=== PATIENT | female | born 1960 | race Caucasian/White ===

== ENCOUNTER → 2024-09-07 12:33 | Outpatient (REF) | payer OTHER, SELFPAY ==
[2024-09-07 09:20] LABS: % Basophils 0.3 % (0-2); % Eosinophils 3.6 % (0-6); % Immature Granulocytes 0.2 % (0-0.5); % Lymphocytes 25.2 % (20.5-51.1); % Monocytes 9.6 % (1.7-9.3); % Neutrophils 61.1 % (42.2-75.2); Absolute Eosinophils 0.2 10^3/uL (0-0.7); Absolute Lymphocytes 1.6 10^3/uL (1.2-3.4); Absolute Monocytes 0.6 10^3/uL (0.1-0.6); Hematocrit 36.6 % (37.0-47.0); Mean Corp Hgb Conc. 30.1 g/dL (33.0-37.0); Mean Corpuscular Volume 83.2 fL (81.0-99.0); Mean Platelet Volume 10.2 fL (7.4-10.4); Platelet Count 267 10^3/uL (130-400); Red Cell Dist. Width 17.2 % (11.5-14.5); White Blood Cell Count 6.5 10^3/uL (4.8-10.8)
== END ==
LOC: OIDL 12:33
PROVIDERS: ATTENDING PHYSICIAN Nurse Practitioner Primary Care
DX: C82.21 Follicular lymphoma grade III, unspecified, lymph nodes of head, face, and neck (principal)
CPT/HCPCS: 85025

== ENCOUNTER → 2024-09-14 09:54 | Outpatient (REF) | payer OTHER, SELFPAY ==
[2024-09-14 09:26] LABS: % Basophils 0.4 % (0-2); % Eosinophils 3.1 % (0-6); % Immature Granulocytes 0.4 % (0-0.5); % Lymphocytes 26.8 % (20.5-51.1); % Monocytes 7.3 % (1.7-9.3); Absolute Eosinophils 0.3 10^3/uL (0-0.7); Absolute Lymphocytes 2.2 10^3/uL (1.2-3.4); Absolute Monocytes 0.6 10^3/uL (0.1-0.6); Hemoglobin 9.4 g/dL (12.0-16.0); Mean Corp Hgb Conc. 30.3 g/dL (33.0-37.0); Mean Corpuscular Hgb 26.4 pg (27.0-31.0); Mean Corpuscular Volume 87.1 fL (81.0-99.0); Mean Platelet Volume 10.4 fL (7.4-10.4); Platelet Count 249 10^3/uL (130-400); Red Blood Cell Count 3.56 10^6/uL (4.20-5.40); Red Cell Dist. Width 19.4 % (11.5-14.5); White Blood Cell Count 8.1 10^3/uL (4.8-10.8)
== END ==
LOC: OIDL 09:54
PROVIDERS: ATTENDING PHYSICIAN Nurse Practitioner Primary Care
DX: C82.21 Follicular lymphoma grade III, unspecified, lymph nodes of head, face, and neck (principal)
CPT/HCPCS: 85025

== ENCOUNTER → 2024-09-21 10:52 | Outpatient (REF) | payer OTHER, SELFPAY ==
[2024-09-21 08:45] LABS: % Basophils 0.2 % (0-2); % Eosinophils 3.3 % (0-6); % Immature Granulocytes 0.4 % (0-0.5); % Lymphocytes 28.2 % (20.5-51.1); % Monocytes 8.9 % (1.7-9.3); Absolute Eosinophils 0.2 10^3/uL (0-0.7); Absolute Lymphocytes 1.6 10^3/uL (1.2-3.4); Absolute Monocytes 0.5 10^3/uL (0.1-0.6); Absolute Neutrophils 3.3 10^3/uL (1.4-6.5); Hematocrit 34.8 % (37.0-47.0); Hemoglobin 10.4 g/dL (12.0-16.0); Mean Corp Hgb Conc. 29.9 g/dL (33.0-37.0); Mean Corpuscular Hgb 26.3 pg (27.0-31.0); Mean Corpuscular Volume 88.1 fL (81.0-99.0); Mean Platelet Volume 9.5 fL (7.4-10.4); Platelet Count 301 10^3/uL (130-400); Red Blood Cell Count 3.95 10^6/uL (4.20-5.40); Red Cell Dist. Width 20.5 % (11.5-14.5); White Blood Cell Count 5.5 10^3/uL (4.8-10.8)
== END ==
LOC: OIDL 10:52
PROVIDERS: ATTENDING PHYSICIAN Nurse Practitioner Primary Care
DX: C82.21 Follicular lymphoma grade III, unspecified, lymph nodes of head, face, and neck (principal)
CPT/HCPCS: 85025

== ENCOUNTER → 2024-09-28 09:08 | Outpatient (REF) | payer OTHER, SELFPAY ==
[2024-09-28 09:36] LABS: % Basophils 0.7 % (0-2); % Eosinophils 3.3 % (0-6); % Immature Granulocytes 0.2 % (0-0.5); % Monocytes 9.9 % (1.7-9.3); % Neutrophils 60.9 % (42.2-75.2); Absolute Eosinophils 0.2 10^3/uL (0-0.7); Absolute Lymphocytes 1.5 10^3/uL (1.2-3.4); Absolute Monocytes 0.6 10^3/uL (0.1-0.6); Absolute Neutrophils 3.6 10^3/uL (1.4-6.5); Hematocrit 36.1 % (37.0-47.0); Hemoglobin 10.8 g/dL (12.0-16.0); Mean Corp Hgb Conc. 29.9 g/dL (33.0-37.0); Mean Corpuscular Hgb 26.5 pg (27.0-31.0); Mean Corpuscular Volume 88.5 fL (81.0-99.0); Platelet Count 285 10^3/uL (130-400); Red Blood Cell Count 4.08 10^6/uL (4.20-5.40); Red Cell Dist. Width 20.1 % (11.5-14.5); White Blood Cell Count 5.8 10^3/uL (4.8-10.8)
== END ==
LOC: OIDL 09:08
PROVIDERS: ATTENDING PHYSICIAN Nurse Practitioner Primary Care
DX: C82.21 Follicular lymphoma grade III, unspecified, lymph nodes of head, face, and neck (principal)
CPT/HCPCS: 85025